=== PATIENT | male | born 1950 | race Caucasian/White ===

== ENCOUNTER 2018-01-31 03:07 | Outpatient (CLI) | payer MEDICARE, BC, SELFPAY ==
[2018-01-31 13:44] LABS: Hemoglobin A1C 6.6 % (4.5-6.2)
== END 2018-01-31 03:27 ==
PROVIDERS: PCP Family Medicine; Visit Provider Family Medicine
DX: E11.9 Type 2 diabetes mellitus without complications (principal)
CPT/HCPCS: 36415; 83036

== ENCOUNTER 2018-02-11 00:30 | Outpatient (CLI) | payer MEDICARE, BC, SELFPAY ==
--- NOTE | 2018-02-11 09:55 | DI.RAD_ITS ---
SYMPTOMS/DIAGNOSIS: LOW BACK PAIN, DORSALGIA, M54.9 LUMBAR SPINE: AP and lateral views only were obtained. The patient may return for a complete lumbar spine series. There is normal alignment. No spondylolysis is appreciated. There is a vacuum disc at L3-4 and L4-L5. Endplate osteophytes are seen at multiple levels of the lumbar spine, but most marked at the L4-L5 level. Degenerative changes of the facets are seen at L3-4 through L5-S1. No acute fractures or subluxations are seen. There do appear to be calcifications in the right upper quadrant of the abdomen suggesting cholelithiasis. IMPRESSION: 1. Mild to moderate degenerative changes in the lumbar spine. 2. Calcifications seen in the right upper quadrant suspicious for cholelithiasis. Followup as clinically appropriate.
== END 2018-02-11 00:50 ==
PROVIDERS: PCP Family Medicine; Visit Provider Family Medicine
DX: M54.5 Low back pain (principal); M47.817 Spondylosis without myelopathy or radiculopathy, lumbosacral region; M25.78 Osteophyte, vertebrae
CPT/HCPCS: 72110

== ENCOUNTER 2018-02-13 01:32 | Outpatient (CLI) | payer MEDICARE, BC, SELFPAY ==
--- NOTE | 2018-02-13 09:47 | DI.RAD_ITS ---
SYMPTOM/DIAGNOSIS: LOW BACK PAIN, DORSALGIA, M54.9, VIEWS TO COMPLETE PREVIOUS STUDY, NO CHARGE LUMBOSACRAL SPINE: Two views were obtained. These views were obtained in conjunction with AP and lateral views obtained 02/11/18 as well as an oblique view obtained that day. Note is made of moderate hypertrophic degenerative changes of the facet joints at L 3-4, L 4-5 and L 5-S 1 bilaterally. There is disc space narrowing throughout the lumbar spine. There is a mild pseudospondylolisthesis of L 3 on L 4. No compression fracture identified. CONCLUSION: Degenerative changes of the lumbar spine as described above.
== END 2018-02-13 01:52 ==
PROVIDERS: PCP Family Medicine; Visit Provider Family Medicine
DX: M54.5 Low back pain (principal); M47.817 Spondylosis without myelopathy or radiculopathy, lumbosacral region
CPT/HCPCS: 72100

== ENCOUNTER 2018-08-12 15:32 | Outpatient (REF) | payer MEDICARE, BC, SELFPAY ==
[2018-08-12 16:38] LABS: Abs Immature Grans 0.02 k/cumm (0.0-0.09); Absolute Basophil Count 0.03 k/cumm (0.0-0.2); Absolute Eosinophil Count 0.05 k/cumm (0.0-0.7); Absolute Lymphocyte Count 1.14 k/cumm (1.2-3.4); Absolute Neutrophil Count 6.33 k/cumm (1.2-6.7); Basophils % 0.4; Eosinophils % 0.6; HCT 26.3 % (40.0-50.0); Immature Grans % 0.2; Mean Corpuscular Hemoglobin 17.4 pg (27.0-33.0); Mean Corpuscular Volume 64.6 fL (80-95); Mean Platelet Volume 11.3 fL (8.0-11.0); Monocytes % 7.3; Neutrophils % 77.5; RBC 4.07 m/cumm (4.50-6.00); RBC Distribution Width 20.5 % (11.8-14.1); White Blood Cell Count 8.17 k/cumm (4.4-10.8)
[2018-08-12 17:02] LABS: ALT 24 U/L (12-78); AST 16 U/L (15-37); Albumin 2.9 g/dL (3.4-5.0); Alkaline Phosphatase 56 U/L (46-116); BUN 25 mg/dL (7-18); Bilirubin, Total 0.3 mg/dL (0.2-1.0); CREATININE 1.27 mg/dL (0.70-1.30); Calcium 8.5 mg/dL (8.5-10.1); Chloride 107 mmol/L (98-107); Estimated GFR 56.57 (mL/min/1.73m2); Glucose 141 mg/dL (70-100); Potassium 4.1 mmol/L (3.5-5.1); Sodium 140 mmol/L (136-145); Total Protein 5.5 g/dL (6.4-8.2)
[2018-08-12 17:12] LABS: Hemoglobin A1C 6.4 % (4.5-6.2)
[2018-08-12 18:38] LABS: Anisocytosis 3+; Diff Comment RBC Morph Reviewed; Hypochromasia 3+; Microcytosis 3+; Platelet Count 294 x1000/uL (130-400); Poikilocytes 1+
[2018-08-12 18:39] LABS: HGB 7.1 g/dL (13.5-17.5)
== END 2018-08-12 15:52 ==
LOC: NCHCN 15:32
PROVIDERS: PCP Family Medicine; Visit Provider Family Medicine
DX: C18.2 Malignant neoplasm of ascending colon (principal); E11.628 Type 2 diabetes mellitus with other skin complications
CPT/HCPCS: 80053; 83036; 85025